=== PATIENT | female | born 1965 | race Caucasian/White ===

== ENCOUNTER 2018-08-09 12:46 | Emergency (ER) | payer BC ==
[2018-08-09 13:43] VITALS: BP 103/73; PULSE 114; TEMP 98; BMI 37.2
--- NOTE | 2018-08-09 13:48 | PDOC ---
Rapid Medical Evaluation Time Seen by Provider: 08/09/18 13:38 Medical Evaluation: Allergies Allergy/AdvReac Type Severity Reaction Status Date / Time No Known Allergies Allergy Verified 04/14/16 17:43
--- NOTE | 2018-08-09 15:46 | PDOC ---
*Physical Exam - Vital Signs Last Vital Signs Temp Pulse Resp BP Pulse Ox 98.0 F 114 H 18 103/73 97 08/09/18 13:39 08/09/18 13:39 08/09/18 13:39 08/09/18 13:39 08/09/18 13:39 ED Treatment Course - LABORATORY CBC & Chemistry Diagram: 08/09/18 15:20 08/09/18 15:20 Medical Decision Making - Medical Decision Making 08/09/18 15:46 Pt seen by Midlevel Provider under my direct supervision Ancillary studies reviewed I agree with plan as outlined by Midlevel Provider *DC/Admit/Observation/Transfer Diagnosis at time of Disposition: Nausea vomiting and diarrhea - Discharge Dispostion Disposition: HOME Condition at time of disposition: Improved - Prescriptions Prescriptions: Ondansetron HCl [Zofran] 4 mg PO TID PRN #12 tablet PRN Reason: Nausea And/Or Vomiting - Referrals Referrals: Toni Perera MD [Primary Care Provider] - - Patient Instructions Printed Discharge Instructions: DI for Diarrhea and Traveler's Diarrhea -- Adult, DI for Vomiting -- Adult Additional Instructions: Please take medication as prescribed as needed for nausea. Please follow a nongreasy spicy or acid E diet for the next 72 hours allowing us stomach to rest. Please add starch like foods such as rice and potatoes. - Post Discharge Activity Forms/Work/School Notes: Back to Work
[2018-08-09] MEDS ORDERED: ONDANSETRON 4 MG/2 ML VIAL IVPUSH ONE (16:12)
[2018-08-09] MEDS ORDERED: PANTOPRAZOLE SODIUM 40 MG in SODIUM CHLORIDE 100 ML IVPB ONE (16:12)
[2018-08-09] MEDS ORDERED: KETOROLAC TROMETHAMINE 30 MG/1 ML VIAL IVPUSH STA (16:13)
[2018-08-09] MEDS ORDERED: SODIUM CHLORIDE 1,000 ML IV STA (16:13)
--- NOTE | 2018-08-09 16:21 | PDOC ---
History of Present Illness - General Chief Complaint: Nausea/Vomiting Stated Complaint: VOMITING/DIARRHEA/ CHEST PAIN Time Seen by Provider: 08/09/18 13:38 History Source: Patient Exam Limitations: No Limitations (*) - History of Present Illness Travel History: No Initial Comments: 08/09/18 16:00 52-year-old female presents to ED with complaints of nausea and vomiting with diarrhea for 3 days. Patient states history of gastritis but states medication daily basis. Patient states secondary to multiple episodes of vomiting she is now sore in her upper back and upper chest. Patient currently complaining of nausea, mild frontal headache and weakness. Patient also states this morning woke up and her mouth was dry. Patient denies palpitations, difficulty breathing , or bloody stool. Timing/Duration: reports: intermittent Quality: reports: mild, burning, cramping Abdominal Pain Onset Location: reports: epigastric Pain Radiation: reports: chest, back Activities at Onset: reports: none Aggravating Factors: improves with: Movement Alleviating Factors: improves with: Rest Past History - Travel Traveled outside of the country in the last 30 days: No Close contact w/someone who was outside of country & ill: No - Past Medical History Allergies/Adverse Reactions: Allergies Allergy/AdvReac Type Severity Reaction Status Date / Time No Known Allergies Allergy Verified 08/09/18 13:43 Home Medications: Ambulatory Orders Bismuth Subsalicylate [Pepto-Bismol -] 524 mg PO DAILY 08/09/18 GI Disorders: Yes - Suicide/Smoking/Psychosocial Hx Smoking History: Never smoked Have you smoked in the past 12 months: No Information on smoking cessation initiated: No Hx Alcohol Use: No Drug/Substance Use Hx: No Substance Use Type: None Patient Lives Alone: No Lives with/in: spouse/SO Abd/GI Specific PMHX - Complaint Specific PMHX GERD: Yes Review of Systems - Review of Systems Able to Perform ROS?: No Is the patient limited Welsh proficient: No Constitutional: Yes: Loss of Appetite, Weakness HEENTM: No: Symptoms Reported Respiratory: No: Symptoms reported Cardiac (ROS): No: Symptoms Reported ABD/GI: Yes: Diarrhea, Nausea, Vomiting, Indigestion : No: Symptoms Reported Musculoskeletal: No: Symptoms Reported Integumentary: No: Symptoms Reported Neurological: Yes: Headache, Weakness Endocrine: No: Symptoms Reported Hematologic/Lymphatic: No: Symptoms Reported *Physical Exam - Vital Signs Last Vital Signs Temp Pulse Resp BP Pulse Ox 98.0 F 114 H 18 103/73 97 08/09/18 13:39 08/09/18 13:39 08/09/18 13:39 08/09/18 13:39 08/09/18 13:39 - Physical Exam General Appearance: Yes: Nourished, Appropriately Dressed. No: Apparent Distress HEENT: positive: EOMI, DARRIUS, TMs Normal, Pharynx Normal. negative: Pale Conjunctivae Neck: positive: Normal Thyroid, Supple Respiratory/Chest: positive: Lungs Clear, Normal Breath Sounds. negative: Respiratory Distress, Accessory Muscle Use Cardiovascular: positive: Regular Rhythm, Tachycardia. negative: Murmur Gastrointestinal/Abdominal: positive: Soft, Tenderness (epigastric) Musculoskeletal: negative: CVA Tenderness Extremity: positive: Normal Capillary Refill Integumentary: positive: Normal Color, Warm, Moist Neurologic: positive: Motor Strength 5/5 (ambulatory ) ED Treatment Course - LABORATORY CBC & Chemistry Diagram: 08/09/18 15:20 08/09/18 15:20 Medical Decision Making - Medical Decision Making 08/09/18 16:06 Chief complaint: Patient with nausea vomiting and diarrhea for the past 2 days now with upper back and upper chest aching worsened with movement and vomiting. Patient denies diabetes but states history of gastritis. Patient denies recent travel or fever. Exam: Patient epigastric tenderness and upper trapezius tenderness along with reproducible upper chest discomfort at the sternal borders. Plan: Labs, urine, IV fluids, protonic's, Toradol and Zofran for nausea. 08/09/18 17:29 Laboratory Tests 08/09/18 08/09/18 08/09/18 15:20 15:20 15:35 WBC 11.4 H Hgb 12.6 Hct 39.1 Absolute Neuts (auto) 8.4 H Sodium 139 Potassium 3.4 L Chloride 104 Carbon Dioxide 30 Anion Gap 5 L BUN 13 Creatinine 0.6 Calcium 7.9 L Magnesium 2.0 Total Bilirubin 0.3 AST 37 ALT 57 Alkaline Phosphatase 90 Total Protein 6.6 Albumin 3.4 Lipase 123 Urine Blood 1+ H Ur Leukocyte Esterase Negative Urine RBC (Auto) 3 Urine Bacteria (Auto) 55.7 08/09/18 17:31 Pt states feeling much better. Will prescribe Zofran. *DC/Admit/Observation/Transfer Diagnosis at time of Disposition: Nausea vomiting and diarrhea - Discharge Dispostion Disposition: HOME Condition at time of disposition: Improved - Referrals Referrals: Toni Perera MD [Primary Care Provider] - - Patient Instructions Printed Discharge Instructions: DI for Diarrhea and Traveler's Diarrhea -- Adult, DI for Vomiting -- Adult Additional Instructions: Please take medication as prescribed as needed for nausea. Please follow a nongreasy spicy or acid E diet for the next 72 hours allowing us stomach to rest. Please add starch like foods such as rice and potatoes. - Post Discharge Activity Forms/Work/School Notes: Back to Work
[2018-08-09] MEDS ORDERED: ONDANSETRON 4 MG/2 ML VIAL ONE (16:28)
[2018-08-09] MEDS ORDERED: KETOROLAC TROMETHAMINE 30 MG/1 ML VIAL ONE (16:28)
[2018-08-09] MEDS ORDERED: PANTOPRAZOLE SODIUM 40 MG/100 ML BAG IVPB ONE (16:28)
[2018-08-09 16:45] LABS: BASO % 0.3 % (0-2.0); EOS % 1.6 % (0-4.5); HEMATOCRIT 39.1 % (32.4-45.2); HEMOGLOBIN 12.6 GM/dL (10.7-15.3); LYMPH % 17.3 % (8-40); MCH 27.4 pg (25.7-33.7); MCHC 32.3 g/dl (32.0-36.0); MEAN CELL VOLUME 84.7 fl (80-96); MEAN PLT VOLUME 8.9 fl (7.5-11.1); NEUT % 73.8 % (42.8-82.8); PLATELET COUNT 211 K/MM3 (134-434); RBC 4.62 M/mm3 (3.60-5.2); RDW 14.9 % (11.6-15.6); WHITE BLOOD COUNT 11.4 K/mm3 (4.0-10.0)
[2018-08-09 16:56] LABS: PH,URINE 5.5 (5.0-8.0); URINE APPEARANCE CLEAR; URINE BACTERIA 55.7 /hpf (NEGATIVE); URINE BILIRUBIN NEGATIVE (NEGATIVE); URINE CASTS 1 /hpf (0-8); URINE COLOR YELLOW; URINE GLUCOSE (UA) NEGATIVE (NEGATIVE); URINE KETONE NEGATIVE (NEGATIVE); URINE LEUK ESTERASE NEGATIVE (NEGATIVE); URINE NITRITE NEGATIVE (NEGATIVE); URINE PROTEIN NEGATIVE (NEGATIVE); URINE RBC 3 /hpf (0-4); URINE UROBILINOGEN 0.2 mg/dL (0.2-1.0); URINE WBC 1 /hpf (0-5)
[2018-08-09 17:01] LABS: ALBUMIN 3.4 g/dl (3.4-5.0); ALK PHOS 90 U/L (45-117); ANION GAP 5 MMOL/L (8-16); BILIRUBIN,TOTAL 0.3 mg/dL (0.2-1); BLOOD UREA NITROGEN 13 mg/dL (7-18); CALCIUM 7.9 mg/dL (8.5-10.1); CHLORIDE 104 mmol/L (98-107); CO2 30 mmol/L (21-32); CREATININE 0.6 mg/dL (0.55-1.3); GLUCOSE,RANDOM 95 mg/dL (74-106); LIPASE 123 U/L (73-393); POTASSIUM 3.4 mmol/L (3.5-5.1); SGOT/AST 37 U/L (15-37); SGPT/ALT 57 U/L (13-61); SODIUM 139 mmol/L (136-145); TOT PROT 6.6 g/dl (6.4-8.2)
--- NOTE | 2018-08-12 11:49 | EKG ---
Test Reason : Blood Pressure : / mmHG Vent. Rate : 116 BPM Atrial Rate : 116 BPM P-R Int : 140 ms QRS Dur : 090 ms QT Int : 342 ms P-R-T Axes : 042 001 013 degrees QTc Int : 475 ms SINUS TACHYCARDIA NONSPECIFIC ST ABNORMALITY ABNORMAL ECG WHEN COMPARED WITH ECG OF 14-APR-2016 18:46, NO SIGNIFICANT CHANGE WAS FOUND Confirmed by ESPERANZA SOLITARIO MD ([id number]) on 08/12/2018 11:49:25 AM Referred By: Confirmed By:ESPERANZA SOLITARIO MD
== END 2018-08-09 17:39 | disposition home or self-care (01) ==
LOC: JER 12:46
PROC: 3E033GC Introduction of Other Therapeutic Substance into Peripheral Vein, Percutaneous Approach (ICD-10-PCS; principal; 2018-08-09)
PROC: 3E033GC Introduction of Other Therapeutic Substance into Peripheral Vein, Percutaneous Approach (ICD-10-PCS; 2018-08-09)
PROC: 3E0333Z Introduction of Anti-inflammatory into Peripheral Vein, Percutaneous Approach (ICD-10-PCS; 2018-08-09)
DX: R11.2 Nausea with vomiting, unspecified (principal); R19.7 Diarrhea, unspecified
CPT/HCPCS: 36415; 80053; 81003; 83690; 83735; 85025; 87086; 93005; 93010; 99282-25; J7030

== ENCOUNTER 2019-03-14 09:28 | Inpatient (IN) | payer BC ==
[2019-03-11 11:55] VITALS: BMI 42.4
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
[2019-03-14] MEDS ORDERED: MIDAZOLAM HCL 2 MG/2 ML SINGLE DOSE VIAL ONE (09:53)
[2019-03-14] MEDS ORDERED: PROPOFOL 20 ML ONE ×2 (09:53)
[2019-03-14] MEDS ORDERED: fentaNYL CITRATE 250 MCG/5 ML VIAL ONE (09:53)
[2019-03-14] MEDS ORDERED: ROCURONIUM BROMIDE 50 MG/5 ML SYRINGE ONE (09:53)
[2019-03-14] MEDS ORDERED: BUPIVACAINE HCL 0.25% 125 MG/50 ML VIAL ONE (09:56)
[2019-03-14] MEDS ORDERED: DEXAMETHASONE SOD PHOSPHATE/PF 10 MG/ML SDV ONE (10:23)
[2019-03-14] MEDS ORDERED: BUPIVACAINE HCL/PF 0.5% (5 MG/ML) 30 ML VIAL IJ ONE (10:23)
[2019-03-14] MEDS ORDERED: Pregnancy Control Solution IV ONE (10:53)
[2019-03-14] MEDS ORDERED: EPHEDRINE SULFATE/0.9% NACL/PF 50 MG/10 ML SYRINGE NR ONE (11:04)
[2019-03-14] MEDS ORDERED: DEXAMETHASONE SOD PHOSPHATE 4 MG/1 ML VIAL ONE (11:08)
[2019-03-14] MEDS ORDERED: KETOROLAC TROMETHAMINE 30 MG/1 ML VIAL ONE (11:08)
[2019-03-14] MEDS ORDERED: ONDANSETRON 4 MG/2 ML VIAL ONE (11:08)
[2019-03-14] MEDS ORDERED: ceFAZolin SODIUM 1 GM VIAL ONE (11:08)
[2019-03-14] MEDS ORDERED: BUPIVACAINE HCL/PF 0.25% (2.5MG/ML) 10 ML VIAL IJ ONE (11:40)
[2019-03-14] MEDS ORDERED: NEOSTIGMINE METHYLSULFATE 0.5 MG/ML - 10 ML MDV ONE (11:43)
[2019-03-14] MEDS ORDERED: GLYCOPYRROLATE 0.2 MG/1 ML VIAL ONE (11:43)
[2019-03-14] MEDS ORDERED: HYDROmorphone HCL CARPU-JECT 1 MG/1 ML DISP.SYRIN IVPB PRN (12:00)
[2019-03-14] MEDS ORDERED: SODIUM CHLORIDE 1,000 ML IV SCH (12:00)
--- NOTE | 2019-03-14 12:03 | OP ---
Operative Note - Note: Operative Date: 03/14/19 Pre-Operative Diagnosis: Morbid obesity. BMI 42 Operation: Diagnostic laparoscopy. Laparoscopic vertical sleeve gastrectomy. Laparoscopic wedge liver biopsy. Laparoscopic oversewing of gastric staple line Post-Operative Diagnosis: Same as Pre-op (as well as hepatomegaly, oozing of gastric staple line) Surgeon: Jarad Avery Heel Cover Splitter: Jessee Sinha Anesthesia: General Specimens Removed: Greater curvature of stomach. Liver biopsy Estimated Blood Loss (mls): 30 Drains & Tubes with Location: 36 Fr Bougie Operative Report Dictated: Yes
[2019-03-14] MEDS ORDERED: FAMOTIDINE 20 MG/50 ML IVPB 20 MG/50 ML MG IVPB ONE (12:17)
[2019-03-14] MEDS: ACETAMINOPHEN 1000 MG/100 ML VIAL (NON FORMULARY) IVPB SCH ×2 (12:25→18:19)
[2019-03-14] MEDS: METOCLOPRAMIDE HCL INJECTION 10 MG/2 ML VIAL IVPUSH SCH ×3 (12:30→23:34)
--- NOTE | 2019-03-14 12:42 | SPEC ---
DATE OF OPERATION: 03/14/2019 PLACE OF SURGERY: [facility], [address] [place] [address] SURGEON: Jarad Avery MD NSH TEACHER: Jessee Sinha MD PREOPERATIVE DIAGNOSES: 1. Morbid obesity. 2. Body mass index of 42. POSTOPERATIVE DIAGNOSES: 1. Morbid obesity. 2. Body mass index of 42. 3. Hepatomegaly. 4. Oozing/bleeding from gastric staple line. PROCEDURES: 1. Diagnostic laparoscopy. 2. Robotic vertical sleeve gastrectomy. 3. Laparoscopic wedge liver biopsy. 4. Oversewing of bleeding gastric staple line. SPECIMENS: 1. Greater curvature of the stomach. 2. Liver biopsy. ESTIMATED BLOOD LOSS: 30 mL. DRAIN: None. ANESTHESIA: GET. BOUGIE SIZE: 36-Bolivian. REASON FOR PROCEDURE: This is a 53-year-old female who presents to the office for weight loss options. After describing different options, she decided to proceed with a laparoscopic, possible open, vertical sleeve gastrectomy, possible liver biopsy, upper endoscopy. The patient was seen by the respective subspecialties and cleared for surgery. The risks and benefits of the procedure were explained. These included bleeding, infection, hernia, NJ, DVT, PE, injury to surrounding structures including the liver, colon, bowel, spleen, esophagus, vessel injury, nerve injury, weight regain, gastric leak, staple line leak, sleeve leak, obstruction, vitamin deficiency, hair loss and as some of the possible complications. The patient understood and signed informed consent. DESCRIPTION OF PROCEDURE: The patient was placed supine on the operating room table. The patient underwent general endotracheal intubation. The arms were brought out at 90 degrees and secured. A footboard was placed and the legs were secured laterally with padding. The abdomen was prepped and draped in the usual sterile fashion. A timeout was performed. An incision was made in the left upper quadrant and a Veress needle inserted. Pneumoperitoneum was established. Subsequently, the Veress needle was removed and a 5-mm trocar was placed under direct visualization with the laparoscope. The laparoscopic camera was then inserted and inspection of the abdominal cavity was performed. An incision was then made in the supraumbilical area and a 15-mm trocar was placed under direct visualization. A 5-mm trocar was then placed in the right upper quadrant and a 5-mm trocar was placed below the left subcostal margin. A stab wound was made in the subxiphoid area and a Mansi clamp inserted and removed to dilate the tract. A Felicia liver retractor was inserted. The post was secured at the bedside by the nursing staff. The patient was placed in steep reverse Trendelenburg position and the Felicia liver retractor was used to secure the liver towards the anterior abdominal wall. The pylorus was identified and 6 cm proximal to it, the lesser sac was entered using the LigaSure device. All lateral attachments to the greater curvature of the stomach, including the short gastric vessels, were ligated using the LigaSure device toward the gastrosplenic and gastrophrenic ligaments. Once this was done in its entirety, it was confirmed that all tubes within the nasal or oropharyngeal cavity, including a temperature probe were removed by Anesthesia. The bougie was then inserted by Anesthesia. Transection of the stomach was then begun staying adjacent to the bougie but away from the angularis. Transection of the stomach was performed near the portion of the stomach where the lesser sac was entered. Two laparoscopic Endo-ELIZA black marion were used at this location. Laparoscopic Endo ELIZA purple staple loads were then used for the remainder of the transection until the greater curvature of the stomach was fully transected. This was done staying close to the bougie. Care was taken to stay away from the angle of His cephalad. The staple line was then inspected. Hemostasis was identified. A leak test was then performed. It was clamped distally to the staple line. Irrigation solution was placed in the left upper quadrant and air was insufflated by Anesthesia into the sleeve. No leaks were identified. No obstruction was identified. This was done through the entirety of the staple line. The stomach was suctioned and the bougie removed fully intact under direct visualization. At this point, the irrigation solution was suctioned and again, hemostasis was noted. A wedge liver biopsy was then performed. The left lobe of the liver was identified. A portion of the edge of the left lobe of the liver was grasped. Using electrocautery, a wedge of the left liver was excised. The specimen was removed and sent off the field. Hemostasis of the wedge liver biopsy site was attained and noted using electrocautery. The 15-mm supraumbilical trocar was then removed and the greater curvature specimen removed from the site using a sponge stick erazo. A Jonathan-Yamilex device was then used to close the fascia with a 0 Vicryl suture at the site. Again, hemostasis was noted. The Felicia liver retractor was then removed under direct visualization. Pneumoperitoneum was desufflated. Hemostasis was noted at all incision sites and Marcaine was injected at all incision sites. A 3-0 Vicryl suture was used to close the deep subcutaneous tissue at the 15-mm incision site. All incision sites were closed using 4-0 Biosyn. At the end of the procedure, the gastric staple line was noted to be oozing. Because of this, oversewing of the gastric staple line in multiple areas using an Endo Stitch device was performed. This was performed until hemostasis was obtained. The remainder of the procedure was completed, and the patient was transferred in stable condition to the recovery room. Bernadine HERNANDEZ/[id number]
[2019-03-14] MEDS ORDERED: FAMOTIDINE 20 MG PREMIXED IVPB IVPB ONE (12:45)
[2019-03-14 12:56] LABS: HEMATOCRIT 38.1 % (32.4-45.2); HEMOGLOBIN 12.4 GM/dl (10.7-15.3); MCH 28.2 pg (25.7-33.7); MCHC 32.7 g/dl (32.0-36.0); MEAN CELL VOLUME 86.2 fl (80-96); MEAN PLT VOLUME 9.4 fl (7.5-11.1); PLATELET COUNT 217 K/MM3 (134-434); RBC 4.42 M/mm3 (3.60-5.2); RDW 14.5 % (11.6-15.6); WHITE BLOOD COUNT 10.2 K/mm3 (4.0-10.8)
[2019-03-14] MEDS ORDERED: LACTATED RINGERS SOLUTION 1,000 ML IV SCH (13:00)
[2019-03-14] MEDS: ONDANSETRON 4 MG/2 ML VIAL IVPUSH SCH ×4 (13:20→23:33)
[2019-03-14 13:40] LABS: ALBUMIN 3.3 g/dl (3.4-5.0); BILIRUBIN,TOTAL 0.3 mg/dl (0.2-1); CALCIUM 8.3 mg/dl (8.5-10); CREATININE 0.7 mg/dl (0.55-1.3); POTASSIUM 4.1 mmol/L (3.5-5.1); TOT PROT 6.4 g/dl (6.4-8.2)
[2019-03-14] MEDS: FAMOTIDINE 20 MG/50 ML IVPB 20 MG/50 ML MG IVPB SCH (21:48)
[2019-03-14] MEDS: ENOXAPARIN NA (PORCINE) 40 MG/0.4 ML DISP.SYRIN SQ SCH (21:48)
[2019-03-14] MEDS ORDERED: REFRIGERATED ANITBIOTICS ONE (22:10)
[2019-03-15] MEDS: ONDANSETRON 4 MG/2 ML VIAL IVPUSH SCH ×5 (04:00→21:22)
[2019-03-15] MEDS: METOCLOPRAMIDE HCL INJECTION 10 MG/2 ML VIAL IVPUSH SCH ×3 (05:50→18:18)
[2019-03-15] MEDS: ACETAMINOPHEN 1000 MG/100 ML VIAL (NON FORMULARY) IVPB SCH ×2 (06:17)
--- NOTE | 2019-03-15 07:08 | PN ---
Progress Note (short form) - Note Progress Note: POD 1, s/p Diagnostic laparoscopy. Laparoscopic vertical sleeve gastrectomy. Laparoscopic wedge liver biopsy. Laparoscopic oversewing of gastric staple line Pt seen and examined. Reports pain is controlled. Has been oob ambulating without issue. NPO. Had episode of vomiting overnight (Rn reports mild episode of spitting up water, improved with ambulation). No Flatus yet. Denies cp/sob, n /v/d, calf pain. Vital Signs Temp 98.6 F 03/15/19 05:00 Pulse 99 H 03/15/19 05:00 Resp 19 03/15/19 05:00 BP 115/75 03/15/19 05:00 Pulse Ox 95 03/15/19 06:27 Intake & Output 03/14/19 03/14/19 03/15/19 11:59 23:59 11:59 Intake Total 1100 200 Output Total 20 600 Balance 1080 -400 Weight 255 lb 258 lb 1 oz Intake: IV 1100 IVPB 200 Oral 0 Output: Urine 600 Void 600 Estimated Blood Loss 20 Other: Voiding Method Toilet Toilet Height 5 ft 5 in Body Mass Index (BMI) 42.4 Weight Measurement Method Standing Scale Standing Scale CBC, BMP 03/14/19 12:30 03/14/19 12:00 Gen: awake, alert, nad Resp: Unlabored on RA Abdo: soft, minimal ttp at epigastric region and incision sites. Dressings c/d/ i. + bowel sounds A/P: 53 y/o F w/ morbid obesity, now POD 1, s/p Diagnostic laparoscopy. Laparoscopic vertical sleeve gastrectomy. Laparoscopic wedge liver biopsy. Laparoscopic oversewing of gastric staple line. Afebrile, mildly tachy to low 100s overnight, remainder of VSS Am labs pending Upper Gi series this AM Pain control with Ofirmev 1g q6h, Morphine 4mg q4hrs prn DVT prophylaxis with Lovenox 40mg bid, b/l SCDS, b/l TEDS GI prophylaxis with Pepcid 20mg IV BID, Metoclopramide 10mg Iv q6hrs Zofran 4mg q4hrs prn n/v Remote tele/continuous pulse ox Monitor VS Monitor I&Os OOB ad carlos manuel Continue IVF Incentive spirometry message sent to Dr Avery regarding above <Ryan West - Last Filed: 03/15/19 07:53> - Note Progress Note: Agree Pain controlled No vomiting AVSS WBC 10->16->17 Other Labs WNL UGI: no leak/obstruction Serial CBCs Incetive spirometer AMbulation Deep breathing Will continue to monitor in the hospital <Jarad Avery - Last Filed: 03/15/19 13:52> Problem List - Problems (1) Morbid obesity due to excess calories Code(s): E66.01 - MORBID (SEVERE) OBESITY DUE TO EXCESS CALORIES (2) BMI 40.0-44.9, adult Code(s): Z68.41 - BODY MASS INDEX (BMI) 40.0-44.9, ADULT <Jarad Avery - Last Filed: 03/15/19 13:52>
[2019-03-15 07:56] LABS: HEMATOCRIT 37.4 % (32.4-45.2); HEMOGLOBIN 12.3 GM/dl (10.7-15.3); MCH 27.8 pg (25.7-33.7); MCHC 32.8 g/dl (32.0-36.0); MEAN CELL VOLUME 84.6 fl (80-96); MEAN PLT VOLUME 10.1 fl (7.5-11.1); PLATELET COUNT 221 K/MM3 (134-434); RBC 4.42 M/mm3 (3.60-5.2); WHITE BLOOD COUNT 15.9 K/mm3 (4.0-10.8)
[2019-03-15 08:17] LABS: ALBUMIN 3.2 g/dl (3.4-5.0); BILIRUBIN,TOTAL 0.6 mg/dl (0.2-1); CALCIUM 8.1 mg/dl (8.5-10); CREATININE 0.5 mg/dl (0.55-1.3); POTASSIUM 3.9 mmol/L (3.5-5.1); TOT PROT 6.5 g/dl (6.4-8.2)
[2019-03-15] MEDS: FAMOTIDINE 20 MG/50 ML IVPB 20 MG/50 ML MG IVPB SCH ×2 (09:10→21:22)
[2019-03-15] MEDS: ENOXAPARIN NA (PORCINE) 40 MG/0.4 ML DISP.SYRIN SQ SCH ×2 (09:11→21:22)
[2019-03-15] MEDS ORDERED: SODIUM CHLORIDE 1,000 ML IV SCH (11:00)
[2019-03-15 13:19] LABS: HEMATOCRIT 39.3 % (32.4-45.2); HEMOGLOBIN 13.1 GM/dl (10.7-15.3); MCH 28.7 pg (25.7-33.7); MCHC 33.4 g/dl (32.0-36.0); MEAN CELL VOLUME 85.9 fl (80-96); MEAN PLT VOLUME 9.3 fl (7.5-11.1); PLATELET COUNT 255 K/MM3 (134-434); RBC 4.58 M/mm3 (3.60-5.2); RDW 14.2 % (11.6-15.6); WHITE BLOOD COUNT 17.2 K/mm3 (4.0-10.8)
[2019-03-15 14:06] LABS: ANISOCYTOSIS 1+
[2019-03-15 14:07] LABS: PLATELET ESTIMATE ADEQUATE
[2019-03-15] MEDS: oxyCODONE HCL 5 MG TABLET PO PRN (16:52)
[2019-03-15 18:31] LABS: BASO % 0.4 % (0-2.0); EOS % 0.2 % (0-4.5); HEMATOCRIT 37.6 % (32.4-45.2); HEMOGLOBIN 12.5 GM/dl (10.7-15.3); MCH 28.3 pg (25.7-33.7); MCHC 33.2 g/dl (32.0-36.0); MEAN CELL VOLUME 85.1 fl (80-96); MEAN PLT VOLUME 9.3 fl (7.5-11.1); MONO % 5.9 % (3.8-10.2); NEUT % 79.5 % (42.8-82.8); PLATELET COUNT 206 K/MM3 (134-434); RBC 4.42 M/mm3 (3.60-5.2); WHITE BLOOD COUNT 14.5 K/mm3 (4.0-10.8)
[2019-03-16] MEDS: ONDANSETRON 4 MG/2 ML VIAL IVPUSH SCH ×3 (05:00→08:15)
[2019-03-16] MEDS: METOCLOPRAMIDE HCL INJECTION 10 MG/2 ML VIAL IVPUSH SCH ×2 (06:17)
[2019-03-16] MEDS: oxyCODONE HCL 5 MG TABLET PO PRN (06:18)
[2019-03-16 07:50] LABS: BASO % 0.4 % (0-2.0); HEMATOCRIT 37.1 % (32.4-45.2); HEMOGLOBIN 12.3 GM/dl (10.7-15.3); LYMPH % 19.9 % (8-40); MCH 28.3 pg (25.7-33.7); MEAN CELL VOLUME 85.5 fl (80-96); MEAN PLT VOLUME 9.1 fl (7.5-11.1); NEUT % 70.7 % (42.8-82.8); PLATELET COUNT 199 K/MM3 (134-434); RBC 4.34 M/mm3 (3.60-5.2); RDW 14.1 % (11.6-15.6); WHITE BLOOD COUNT 10.7 K/mm3 (4.0-10.8)
--- NOTE | 2019-03-16 07:53 | DS ---
Physical Exam: SUBJECTIVE: Patient seen and examined this am. No nausea or emesis with clears. Passing flatus and voiding without difficulty. No CP or SOB OBJECTIVE: Vital Signs Temperature 98.6 F 03/16/19 06:00 Pulse Rate 96 H 03/16/19 06:00 Respiratory Rate 19 03/16/19 06:00 Blood Pressure 125/65 03/16/19 06:00 O2 Sat by Pulse Oximetry (%) 95 03/16/19 06:35 PHYSICAL EXAM GENERAL: The patient is awake, alert, and fully oriented, in no acute distress. LUNGS: Breath sounds equal, clear to auscultation bilaterally.. HEART: Regular rate and rhythm, mild tachycardia. ABDOMEN: Soft, nontender, nondistended, no guarding, no rebound. Incision c/d/ i. EXTREMITIES: No edema or calf tenderness b/l. LABS CBC,CMP Laboratory Tests 03/15/19 03/16/19 07:07 07:10 WBC 10.7 Hgb 12.3 Hct 37.1 Plt Count 199 Sodium 134 L Potassium 3.9 Chloride 103 Carbon Dioxide 25 Anion Gap 6 L BUN 10.0 Creatinine 0.5 L Est GFR (CKD-EPI)AfAm 129.88 Est GFR (CKD-EPI)NonAf 112.06 Random Glucose 126 H Calcium 8.1 L Total Bilirubin 0.6 AST 48 H ALT 64 H Alkaline Phosphatase 57 Total Protein 6.5 Albumin 3.2 L HOSPITAL COURSE: Date of Admission:03/14/19 Date of Discharge: 03/16/19 <Li Duncan - Last Filed: 03/16/19 08:01> Physical Exam: SUBJECTIVE: Patient seen and examined OBJECTIVE: Vital Signs Temperature 99.3 F 03/16/19 08:55 Pulse Rate 92 H 03/16/19 08:55 Respiratory Rate 18 03/16/19 08:55 Blood Pressure 119/75 03/16/19 08:55 O2 Sat by Pulse Oximetry (%) 95 03/16/19 08:55 PHYSICAL EXAM GENERAL: The patient is awake, alert, and fully oriented, in no acute distress. HEAD: Normal with no signs of trauma. EYES: PERRL, extraocular movements intact, sclera anicteric, conjunctiva clear. ENT: Ears normal, nares patent, oropharynx clear without exudates, moist mucous membranes. NECK: Trachea midline, full range of motion, supple. LUNGS: Breath sounds equal, clear to auscultation bilaterally, no wheezes, no crackles, no accessory muscle use. HEART: Regular rate and rhythm, S1, S2 without murmur, rub or gallop. ABDOMEN: Soft, nontender, nondistended, normoactive bowel sounds, no guarding, no rebound, no hepatosplenomegaly, no masses. EXTREMITIES: 2+ pulses, warm, well-perfused, no edema. NEUROLOGICAL: Cranial nerves II through XII grossly intact. Normal speech, gait not observed. PSYCH: Normal mood, normal affect. SKIN: Warm, dry, normal turgor, no rashes or lesions noted. LABS CBC,CMP WBC 10.7 K/mm3 (4.0-10.8) 03/16/19 07:10 RBC 4.34 M/mm3 (3.60-5.2) 03/16/19 07:10 Hgb 12.3 GM/dl (10.7-15.3) 03/16/19 07:10 Hct 37.1 % (32.4-45.2) 03/16/19 07:10 MCV 85.5 fl (80-96) 03/16/19 07:10 MCH 28.3 pg (25.7-33.7) 03/16/19 07:10 MCHC 33.0 g/dl (32.0-36.0) 03/16/19 07:10 RDW 14.1 % (11.6-15.6) 03/16/19 07:10 Plt Count 199 K/MM3 (134-434) 03/16/19 07:10 MPV 9.1 fl (7.5-11.1) 03/16/19 07:10 Absolute Neuts (auto) 7.6 K/mm3 03/16/19 07:10 Neutrophils % 70.7 % (42.8-82.8) 03/16/19 07:10 Neutrophils % (Manual) 79.0 % (42.8-82.8) 03/15/19 13:03 Lymphocytes % 19.9 % (8-40) 03/16/19 07:10 Lymphocytes % (Manual) 17.0 % (8-40) 03/15/19 13:03 Monocytes % 8.0 % (3.8-10.2) 03/16/19 07:10 Monocytes % (Manual) 4 % (3.8-10.2) 03/15/19 13:03 Eosinophils % 1.0 % (0-4.5) 03/16/19 07:10 Basophils % 0.4 % (0-2.0) 03/16/19 07:10 Hypochromia 1+ 03/15/19 13:03 Platelet Estimate Adequate 03/15/19 13:03 Anisocytosis 1+ 03/15/19 13:03 Sodium 134 mmol/L (136-145) L 03/15/19 07:07 Potassium 3.9 mmol/L (3.5-5.1) 03/15/19 07:07 Chloride 103 mmol/L (98-107) 03/15/19 07:07 Carbon Dioxide 25 mmol/L (21-32) 03/15/19 07:07 Anion Gap 6 MMOL/L (8-16) L 03/15/19 07:07 BUN 10.0 mg/dl (7-18) 03/15/19 07:07 Creatinine 0.5 mg/dl (0.55-1.3) L 03/15/19 07:07 Est GFR (CKD-EPI)AfAm 129.88 03/15/19 07:07 Est GFR (CKD-EPI)NonAf 112.06 03/15/19 07:07 Random Glucose 126 mg/dl (74-106) H 03/15/19 07:07 Calcium 8.1 mg/dl (8.5-10) L 03/15/19 07:07 Total Bilirubin 0.6 mg/dl (0.2-1) 03/15/19 07:07 AST 48 U/L (15-37) H 03/15/19 07:07 ALT 64 U/L (13-61) H 03/15/19 07:07 Alkaline Phosphatase 57 U/L (45-117) 03/15/19 07:07 Total Protein 6.5 g/dl (6.4-8.2) 03/15/19 07:07 Albumin 3.2 g/dl (3.4-5.0) L 03/15/19 07:07 HOSPITAL COURSE: Date of Admission:03/14/19 Date of Discharge: 03/17/19 Agree Patient had no pain or nausea Vital signs remained stable WBC trended downward Last WBC was 10 Tolerated liquids Discharged home Minutes to complete discharge: 20 <Jarad Avery - Last Filed: 03/17/19 10:08>
[2019-03-16 09:03] VITALS: BP 119/75; PULSE 92; TEMP 99.3
--- NOTE | 2019-03-16 16:42 | PATH ---
Surgical Pathology Report Patient Name: HEIDI HSU Med. Rec. #: [id number] /Age/Gender: 1965 (Age: 53) / F Account: [id number] Location: [facility] Taken: 03/14/2019 Received: 03/14/2019 Reported: 03/16/2019 Physicians: Jarad Avery M.D. Specimen(s) Received A: GREATER CURVATURE STOMACH B: LIVER BIOPSY Clinical History Morbid obesity Final Diagnosis A. GREATER CURVATURE STOMACH, LAPAROSCOPIC VERTICAL SLEEVE GASTRECTOMY: SEGMENT OF STOMACH SHOWING MILD CHRONIC GASTRITIS. IMMUNOSTAINING IS NEGATIVE FOR H. PYLORI ORGANISMS. B. LIVER, BIOPSY: SUBCAPSULAR LIVER TISSUE WITH FOCAL, MILD STEATOSIS (~2%). PORTAL TRACTS SHOW MILD NONSPECIFIC MIXED INFLAMMATORY INFILTRATE COMPRISED OF MAINLY LYMPHOCYTES WITH FEW SCATTERED PLASMA CELLS. NO HISTOLOGIC EVIDENCE OF HEPATITIS. NO INCREASE IN FIBROSIS (TRICHROME STAIN) OR IRON (IRON STAIN) DEPOSITION. Electronically Signed Abigail Diane M.D. Gross Description A. Received in formalin, labeled "greater curvature of stomach," is a 94 gram, 17.0 x 2.5 x 2.5 cm. portion of stomach with a stapled margin of resection. The serosa is polo-bear with minimal attached fat. The mucosa is polo-pink with normal folds. No mucosal masses are identified. Head Nurse sections are submitted in one cassette. B. Received in formalin labeled "liver biopsy," is a 3.0 x 1.0 x 0.9 cm polo portion of soft tissue, consistent with a portion of liver. Head Nurse sections are submitted in one cassette. /03/15/2019 [facility]03/15/2019
== END 2019-03-16 09:15 | disposition home or self-care (01) | DRG 621 ==
LOC: FM/S 09:28
PROVIDERS: ADMIT Surgery; ATTEND Surgery
PROC: 0DB64Z3 Excision of Stomach, Percutaneous Endoscopic Approach, Vertical (ICD-10-PCS; principal; 2019-03-14 11:05)
PROC: 0FB24ZX Excision of Left Lobe Liver, Percutaneous Endoscopic Approach, Diagnostic (ICD-10-PCS; 2019-03-14 11:05)
DX: E66.01 Morbid (severe) obesity due to excess calories (principal); Z68.41 Body mass index [BMI] 40.0-44.9, adult; R16.0 Hepatomegaly, not elsewhere classified
CPT/HCPCS: 36415; 74241-TC-FY; 80053; 85025; 85027; 88305-TC; 94760; J0131; J7030